=== PATIENT | male | born 1985 | race Caucasian/White ===

== ENCOUNTER 2021-06-20 03:44 | Emergency (ER) | payer MEDICAID ==
[~2021-06-20] VITALS: Ht 177.8 cm; Wt 34.1 kg
[2021-06-20 03:48] VITALS: BP 143/96
[2021-06-20] MEDS ORDERED: SULF1TAB49 PO (04:11)
== END 2021-06-20 04:19 ==
LOC: ER 03:45
DX: S40.011A Contusion of right shoulder, initial encounter (principal); L02.31 Cutaneous abscess of buttock; S40.211A Abrasion of right shoulder, initial encounter; F15.10 Other stimulant abuse, uncomplicated; Z02.89 Encounter for other administrative examinations; V19.9XXA Pedal cyclist (driver) (passenger) injured in unspecified traffic accident, initial encounter; Y93.89 Activity, other specified; Y92.89 Other specified places as the place of occurrence of the external cause; Y99.8 Other external cause status
CPT/HCPCS: 10060; 99283